=== PATIENT | male | born 2000 | race American Indian/Alaskan Native ===

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

== ENCOUNTER 2021-01-14 10:16 | Emergency (ER) | payer SELFPAY ==
[2021-01-14 10:32] VITALS: BP 126/85
--- NOTE | 2021-01-14 10:40 | Emergency Department Report ---
ED ENT HPI - General Chief complaint: Sore Throat Stated complaint: SWOLLEN TONSILS Time Seen by Provider: 01/14/21 10:33 Source: patient Mode of arrival: Ambulatory Limitations: No Limitations - History of Present Illness Initial comments: 21-year-old male who reports no significant past medical history presents to the ER today with complaints of sore throat. He states that it started gradually 2 days ago but has been getting worse. He states that it hurts when he swallows and he feels like his lymph nodes are swollen. He states that he has been having difficulty eating solids because of the pain but he has been drinking fluids. He denies any difficulty opening his mouth or drooling. He denies any fever, chills, runny nose, nasal congestion or any additional symptoms at this time. He denies any apparent ill contacts or recent travel. MD complaint: sore throat -: days(s) (2) - Related Data Previous Rx's Medication Instructions Recorded Last Taken Type Amoxicillin [Trimox CAP] 500 mg PO Q12H #20 capsule 01/14/21 Unknown Rx Ibuprofen [Motrin] 400 mg PO Q8H PRN #30 tablet 01/14/21 Unknown Rx Allergies Allergy/AdvReac Type Severity Reaction Status Date / Time No Known Allergies Allergy Verified 09/07/18 20:13 ED Dental HPI - General Chief complaint: Sore Throat Stated complaint: SWOLLEN TONSILS Time Seen by Provider: 01/14/21 10:33 Source: patient Mode of arrival: Ambulatory Limitations: No Limitations - Related Data Previous Rx's Medication Instructions Recorded Last Taken Type Amoxicillin [Trimox CAP] 500 mg PO Q12H #20 capsule 01/14/21 Unknown Rx Ibuprofen [Motrin] 400 mg PO Q8H PRN #30 tablet 01/14/21 Unknown Rx Allergies Allergy/AdvReac Type Severity Reaction Status Date / Time No Known Allergies Allergy Verified 09/07/18 20:13 ED Review of Systems ROS: Stated complaint: SWOLLEN TONSILS Other details as noted in HPI Comment: All other systems reviewed and negative Constitutional: denies: chills, fever ENT: throat pain. denies: dental pain, hearing loss, epistaxis, congestion Respiratory: denies: cough, shortness of breath, SOB with exertion, SOB at rest, wheezing Cardiovascular: denies: chest pain, palpitations, edema, syncope, paroxysmal nocturnal dyspnea Gastrointestinal: denies: abdominal pain, nausea, diarrhea, constipation, hematemesis, melena, hematochezia Genitourinary: denies: urgency, dysuria, frequency, hematuria, discharge Musculoskeletal: denies: back pain, joint swelling, arthralgia Skin: denies: rash, lesions, change in color, change in hair/nails, pruritus Neurological: denies: headache, weakness, numbness, paresthesias, confusion, abnormal gait, vertigo Psychiatric: denies: anxiety, depression, auditory hallucinations, visual hallucinations, homicidal thoughts, suicidal thoughts Hematological/Lymphatic: denies: easy bleeding, easy bruising ED Past Medical Hx - Past Medical History Previous Medical History?: No - Surgical History Past Surgical History?: Yes Additional Surgical History: "twisted intestines" - Social History Smoking Status: Current Every Day Smoker - Medications Home Medications: Home Medications Medication Instructions Recorded Confirmed Last Taken Type Amoxicillin [Trimox CAP] 500 mg PO Q12H #20 capsule 01/14/21 Unknown Rx Ibuprofen [Motrin] 400 mg PO Q8H PRN #30 tablet 01/14/21 Unknown Rx ED Physical Exam - General Limitations: No Limitations General appearance: alert, in no apparent distress - Head Head exam: Present: atraumatic, normocephalic, normal inspection - Eye Eye exam: Present: normal appearance, PERRL, EOMI Pupils: Present: normal accommodation - ENT ENT exam: Present: mucous membranes moist - Expanded ENT Exam Expanded Mouth exam: Present: normal external inspection Teeth exam: Present: normal inspection Throat exam: Positive: tonsillar erythema, tonsillomegaly. Negative: R peritonsillar mass, L peritonsillar mass - Neck Neck exam: Present: normal inspection, full ROM, lymphadenopathy (Mild swelling anterior cervical lymphadenopathy but no overlying cellulitis.). Absent: meningismus - Respiratory Respiratory exam: Present: normal lung sounds bilaterally. Absent: respiratory distress, wheezes, rales, rhonchi - Cardiovascular Cardiovascular Exam: Present: normal rhythm, tachycardia, normal heart sounds - Neurological Exam Neurological exam: Present: alert, oriented X3, CN II-XII intact, normal gait - Psychiatric Psychiatric exam: Present: normal affect, normal mood - Skin Skin exam: Present: intact ED Course Vital Signs 01/14/21 01/14/21 10:30 10:54 Temperature 99.1 F Pulse Rate 120 H 105 H Respiratory 18 Rate Blood Pressure 126/85 [Right] O2 Sat by Pulse 100 Oximetry ED Medical Decision Making - Medical Decision Making The patient is resting comfortably and is well-appearing and in no acute distress. There is no respiratory distress, no stridor and the mental status is normal. The neurological exam is normal, and there is no signs of dehydration. His history, exam, diagnostic testing and the patient current condition does not suggest an infectious process such as meningitis, retropharyngeal abscess, epiglottitis, peritonsillar abscess, Ej's angina, severe meningitis, sepsis or any significant pathology warranting further testing, continued ED treatment, admission, consultation or any other evaluation at this time. The vital signs have been stable. The patient condition is stable and appropriate for discharge. Critical care attestation.: If time is entered above; I have spent that time in minutes in the direct care of this critically ill patient, excluding procedure time. ED Disposition Clinical Impression: Tonsillitis Disposition: 01 HOME / SELF CARE / HOMELESS Is pt being admited?: No Condition: Stable Instructions: Tonsillitis, Ekin-cl-Cgsl Additional Instructions: Recommend that you take the amoxicillin twice a day and to completion as prescribed. Recommend that you take ibuprofen as prescribed to help with any pain. I recommend that you continue to drink lots of fluids especially the cold fluids which will also help soothe your throat. Follow-up closely with your primary care doctor. Return to the ER if your symptoms changes or worsens in any way. Prescriptions: Ibuprofen [Motrin] 400 mg PO Q8H PRN #30 tablet PRN Reason: pain Amoxicillin [Trimox CAP] 500 mg PO Q12H #20 capsule Referrals: ASH RUBALCAVA MD [Staff Physician] - 3-5 Days Time of Disposition: 10:42
== END 2021-01-14 11:00 | disposition home or self-care (01) ==
LOC: ED 10:16
DX: J03.90 Acute tonsillitis, unspecified (principal); Z98.890 Other specified postprocedural states
CPT/HCPCS: 99281